=== PATIENT | female | born 1985 | race Two or more races ===

== ENCOUNTER → 2024-06-07 | Outpatient (CLI) | payer MEDICAID, SELFPAY ==
--- NOTE | 2024-06-07 | XR_ITS ---
Examination: Abdomen sonogram, complete Date and time of exam: June 07, 2024 0740 hours. INDICATIONS: Upper abdominal pain beginning 3 years ago Technique: Multiple real-time grayscale transabdominal sonographic images of the abdomen have been obtained. Findings: Normal gallbladder Normal common bile duct 0.2 cm Pancreatic head 2.3 cm Aorta not enlarged. Liver 14 cm fatty infiltration smooth contour no focal liver lesions Normal hepatopedal portal venous flow Patent IVC Right kidney 11.5 cm cortex 2.4 cm Left kidney 12.2 cm renal cortex 2.5 cm Mild bilateral renal parenchymal scar formation Spleen 10.8 cm IMPRESSION: Normal gallbladder Fatty liver Mild bilateral renal parenchymal scar formation
== END | disposition home or self-care (01) ==
PROVIDERS: PCP Nurse Practitioner Family; Referring Provider Nurse Practitioner Family; Visit Provider Nurse Practitioner Family
DX: K76.0 Fatty (change of) liver, not elsewhere classified (principal); N28.89 Other specified disorders of kidney and ureter
CPT/HCPCS: 76700

== ENCOUNTER → 2024-07-17 | Outpatient (CLI) | payer MEDICAID, SELFPAY ==
--- NOTE | 2024-07-17 16:00 | XR_ITS ---
Examination: CT brain head without contrast. 2-D sagittal coronal reconstructions Date and time of exam:July 17, 2024 at 1638 hours INDICATIONS: Chronic sinus pressure and pain and headaches movements CTDI: vol (mGy):48.1 DLP: (mGycm):911 Technique: Multiple CT axial sections of the brain have been obtained, 5 mm slice thickness. Contrast has not been administered. 2-D sagittal, coronal reconstructions have been obtained Low dose protocols were performed. One or more of the following dose reduction techniques were used; automated exposure control, adjustment of the mA and/or KV according to patient size, use of iterative reconstruction technique. Findings: No significant ventricular enlargement. Intra-axial or extra-axial hemorrhage density is not seen. No mass effect or midline shift Basal cisterns are not remarkable. Fourth ventricle is midline. Cranial vault intact. 9 mm calcified right frontal mass Significant ethmoid and maxillary antral frontal and sphenoid sinusitis Impression: Negative for acute hemorrhage, mass effect or midline shift 9 mm calcified round frontal mass,, differential would include meningioma recommend brain MRI follow-up in post contrast
== END | disposition home or self-care (01) ==
PROVIDERS: PCP Nurse Practitioner Family; Referring Provider Nurse Practitioner Family; Visit Provider Nurse Practitioner Family
DX: J32.4 Chronic pansinusitis (principal); R22.0 Localized swelling, mass and lump, head
CPT/HCPCS: 70450

== ENCOUNTER → 2024-10-24 | Outpatient (CLI) | payer MEDICAID, SELFPAY ==
--- NOTE | 2024-10-24 09:00 | XR_ITS ---
Examination: MRI brain with intravenous contrast TECHNIQUE: Multiple axial sagittal coronal brain MRI images post intravenous administration 15 cc gadolinium Date and time: October 24 2024 0946 hours INDICATIONS: CT brain scan July 27, 2024 9 mm calcified frontal convexity mass, patient states right frontal headaches with vision loss paresthesias dizziness FINDINGS: Ventricles are normal in size and configuration No mass effect upon the ventricular system No effacement cortical sulcal markings No enhancing frontal meningioma is depicted Sella turcica is not enlarged No pituitary macroadenoma or microadenoma IMPRESSION: No enhancing meningioma is confirmed No abnormal enhancing cerebellar or cerebral lesion
== END | disposition home or self-care (01) ==
LOC: SMRI 08:51
PROVIDERS: PCP Nurse Practitioner Family; Referring Provider Nurse Practitioner Family; Visit Provider Nurse Practitioner Family
DX: G93.89 Other specified disorders of brain (principal)
CPT/HCPCS: 70552; A9577